=== PATIENT | female | born 1980 | race Caucasian/White ===

== ENCOUNTER → 2017-02-23 | Day surgery (SDC) | payer OTHER ==
[~2017-02-23] VITALS: Ht 165.1 cm; Wt 70.0 kg
[~2017-02-23] MED LIST: BUPIVACAINE/EPINEPHRINE 0.5% PF 10 ML VIAL ONE; CHLORHEXIDINE GLUCONATE 2 % 1 PACK (2 CLOTHS) TOPICAL PRN; CYCL1TAB29 PO; GABA100C4 PO; INSULIN HUMAN REGULAR 1,000 UNITS/10 ML VIAL SQ PRN; LACTATED RINGER'S 1000 ML IV PRN; METOPROLOL TARTRATE 25 MG TAB PO PRN; MIDAZOLAM HCL 5 MG/ML VIAL (1 ML) ONE; ONDANSETRON HCL 4 MG/2 ML VIAL ONE; POVIDONE IODINE 5% (ANTISEPSIS KIT) 4 APPLICATIONS EACH NARE PRN; SODIUM CHLOR 0.9% 250 ML INJ 250 ML ONE; SODIUM CHLORID 0.9% 500 ML IV PRN; VANCOMYCIN HCL 1000 MG VIAL ONE; ceFAZolin 2 GM PREMIX 50 ML ONE
[2017-02-23 09:15] VITALS: PULSE 110
--- NOTE | 2017-02-23 09:36 | MP ---
cc: RANJAN CRANE M.D. DATE OF SURGERY: 02/23/2017 PREOPERATIVE DIAGNOSIS: Impingement syndrome of the right shoulder with tendinosis versus tear of the rotator cuff. POSTOPERATIVE DIAGNOSIS: Impingement syndrome with torn rotator cuff (partial). DETAILS OF THE PROCEDURE: The patient was placed first in the supine position on the operating room table and adequate general anesthesia was administered by the anesthesiologist. The patient had received a nerve block in the holding unit. The patient was then placed in a modified beach-chair position with pad under the shoulder blade. The shoulder was then prepped and draped in usual sterile fashion. A time-out was called and the patient's name and procedure and location and age were fully verified and confirmed. A longitudinal incision was made for approximately 1 inch in length, over the superior anterior surface of the right shoulder at the level of the acromial process. The was taken down to subcutaneous tissues and bleeding points were electrocauterized. The underlying fascia was incised following which the attachment of the deltoid muscle along the anterior border of the acromial process was transected with electrocautery. There appeared to be a very large and thickened coracoacromial ligament which was resected distally. The underlying bursa was also thickened and was partially excised. Following which a decompression of the acromial process with partial acromioplasty performed with a power bur. The rotator cuff was further exposed by removing additional bursal tissues, which was copious. The rotator cuff was then fully identified and palpated and there did appear to be partial tearing only of the supraspinatus along its anterior portion in proximity to the greater tuberosity. The area appeared to be also eroded consistent with chronic impingement. This area was then repaired with a mattress suture of #2 FiberWire the same #2 fiber wire was used for reinsertion of the deltoid muscle placed through the bone itself. A thorough irrigation was carried out throughout the procedure and no fragments remained. The subcutaneous tissue was then approximated with a running simple suture of 3-0 Vicryl and subcuticular 4-0 running Vicryl was then used for approximation of the skin edges. Steri-Strips was then applied followed by application of a small dressing and a sling and swath immobilizer. Estimated blood loss was minimal the procedure was tolerated well and sponge count, needle counts were reported correct x2. The patient then transferred to recovery room in satisfactory condition. MD HERNANDO Jean-Baptiste/madiha /8:56 AM /9:17 AM
[2017-02-23 10:40] VITALS: BP 135/89; PULSE 107; RESP 16; TEMP 98.1; O2SAT 99
== END | disposition home or self-care (01) ==
LOC: PHSDC 06:18
PROVIDERS: ATTEND Orthopaedic Surgery
DX: M75.101 Unspecified rotator cuff tear or rupture of right shoulder, not specified as traumatic (principal); M75.41 Impingement syndrome of right shoulder
CPT/HCPCS: J0690; J2250; J2405; J3010; J3370; J7050